=== PATIENT | male | born 1985 | race Caucasian/White ===

== ENCOUNTER → 2018-10-15 | Outpatient (CLI) | payer BC ==
--- NOTE | 2018-10-15 13:38 | Diagnostic Imaging Report ---
INDICATION: Right knee pain AP, oblique, and lateral views of the right knee are obtained. No fracture or acute bony abnormality is seen. Joint spaces appear unremarkable. There is no joint effusion. There is no lytic or blastic lesion. IMPRESSION: Negative right knee. Dictated by: Dictated on workstation # [id number]
== END ==
LOC: RAD FS 13:26
PROVIDERS: ATTEND Nurse Practitioner Family
DX: M25.561 Pain in right knee (principal)
CPT/HCPCS: 73562

== ENCOUNTER 2019-03-09 04:03 | Emergency (ER) | payer BC ==
[~2019-03-09] VITALS: Ht 182 cm; Wt 104.0 kg
--- NOTE | 2019-03-09 04:12 | ED Chest Pain ---
General Chief Complaint: Chest Pain Stated Complaint: CHEST PAIN Source: patient Exam Limitations: no limitations History of Present Illness Date Seen by Provider: Mar 09, 2019 Time Seen by Provider: 04:12 Initial Comments 33-year-old male presents with left chest pain, cough, fever, nausea. Patient reports that started yesterday and it went away. Then chest pain then woke him up around 3:00 this morning. He is nauseated. He did not get diaphoretic or short of breath. Nothing seems to make it worse. The pain does not radiate Allergies and Home Medications Allergies Coded Allergies: No Known Drug Allergies (Unverified , 03/09/19) Patient Home Medication List Home Medication List Reviewed: Yes Review of Systems Review of Systems Constitutional: No chills; fever EENTM: No Symptoms Reported Respiratory: Cough Cardiovascular: Chest Pain Gastrointestinal: No Symptoms Reported Genitourinary: No Symptoms Reported Musculoskeletal: no symptoms reported Skin: no symptoms reported Psychiatric/Neurological: No Symptoms Reported Past Drigdhg-Tfouvs-Vtfehz Hx Past Med/Social Hx: Reviewed Nursing Past Med/Soc Hx Patient Social History Recent Foreign Travel: No Contact w/Someone Who Travel: No Physical Exam Vital Signs Vital Signs - First Documented 03/09/19 04:07 Temp 36.7 Pulse 63 Resp 16 B/P (MAP) 170/104 (126) Pulse Ox 99 O2 Delivery Room Air Capillary Refill : Height, Weight, BMI Height: '" Weight: lbs. oz. 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 Skin: Normal Color, Warm/Dry Lymphatic: No Adenopathy Progress/Results/Core Measures Results/Orders Lab Results Laboratory Tests Test 03/09/19 04:14 Range/Units White Blood Count 7.1 4.3-11.0 10^3/uL Red Blood Count 5.80 4.35-5.85 10^6/uL Hemoglobin 16.3 13.3-17.7 G/DL Hematocrit 49 40-54 % Mean Corpuscular Volume 84 80-99 FL Mean Corpuscular Hemoglobin 28 25-34 PG Mean Corpuscular Hemoglobin Concent 34 32-36 G/DL Red Cell Distribution Width 13.0 10.0-14.5 % Platelet Count 185 130-400 10^3/uL Mean Platelet Volume 9.7 7.4-10.4 FL Neutrophils (%) (Auto) 59 42-75 % Lymphocytes (%) (Auto) 22 12-44 % Monocytes (%) (Auto) 14 H 0-12 % Eosinophils (%) (Auto) 5 0-10 % Basophils (%) (Auto) 0 0-10 % Neutrophils # (Auto) 4.2 1.8-7.8 X 10^3 Lymphocytes # (Auto) 1.6 1.0-4.0 X 10^3 Monocytes # (Auto) 1.0 0.0-1.0 X 10^3 Eosinophils # (Auto) 0.3 0.0-0.3 10^3/uL Basophils # (Auto) 0.0 0.0-0.1 10^3/uL D-Dimer 0.38 0.00-0.49 UG/ML Sodium Level 138 135-145 MMOL/L Potassium Level 4.1 3.6-5.0 MMOL/L Chloride Level 103 98-107 MMOL/L Carbon Dioxide Level 24 21-32 MMOL/L Anion Gap 11 5-14 MMOL/L Blood Urea Nitrogen 10 7-18 MG/DL Creatinine 1.30 0.60-1.30 MG/DL Estimat Glomerular Filtration Rate > 60 BUN/Creatinine Ratio 8 Glucose Level 124 H 70-105 MG/DL Calcium Level 9.1 8.5-10.1 MG/DL Corrected Calcium 8.5-10.1 MG/DL Magnesium Level 2.0 1.6-2.4 MG/DL Total Bilirubin 0.8 0.1-1.0 MG/DL Aspartate Amino Transf (AST/SGOT) 23 5-34 U/L Alanine Aminotransferase (ALT/SGPT) 22 0-55 U/L Alkaline Phosphatase 52 40-136 U/L Troponin I < 0.30 <0.30 NG/ML Pro-B-Type Natriuretic Peptide 14.0 <75.0 PG/ML Total Protein 7.2 6.4-8.2 GM/DL Albumin 4.6 H 3.2-4.5 GM/DL Micro Results Microbiology 03/09/19 Influenza Types A,B Antigen ([facility]) - Final, Complete My Orders Orders - OTONIEL ESTEVEZ DO Cbc With Automated Diff (03/09/19 04:12) Comprehensive Metabolic Panel (03/09/19 04:12) Fibrin Degradation Products (03/09/19 04:12) Ua Culture If Indicated (03/09/19 04:12) Probnp Fs (03/09/19 04:12) Magnesium (03/09/19 04:12) Chest 1 View Ap/Pa Only (03/09/19 04:12) Ekg Tracing (03/09/19 04:12) Monitor-Rhythm Ecg Trace Only (03/09/19 04:12) Aspirin Chewable Tablet (Baby Aspirin Ch (03/09/19 04:15) Ed Iv/Invasive Line Start (03/09/19 04:12) Troponin I Fs (03/09/19 04:12) Influenza A And B Antigens (03/09/19 04:12) Ondansetron Injection (Zofran Injectio (03/09/19 04:30) Ondansetron Injection (Zofran Injectio (03/09/19 04:15) Ekg Tracing (03/09/19 05:12) Medications Given in ED Current Medications Medications Dose Ordered Sig/Vijay Route Start Time Stop Time Status Last Admin Dose Admin Aspirin 324 mg ONCE ONCE PO 03/09/19 04:15 03/09/19 04:16 DC 03/09/19 04:20 324 MG Ondansetron HCl 4 mg ONCE ONCE IVP 03/09/19 04:30 03/09/19 04:31 DC 03/09/19 04:20 4 MG Vital Signs/I&O 03/09/19 04:07 Temp 36.7 Pulse 63 Resp 16 B/P (MAP) 170/104 (126) Pulse Ox 99 O2 Delivery Room Air Progress Progress Note : Time: 05:17 Progress Note Patient with very low risk factors. Patient with 2 negative EKGs, negative t roponin. Discussed with him that I suspect is probably a viral illness since his chest pain started over 36 hours ago and has no change in the troponin and no EKG changes. I will prescribe him Zofran. He should return to the ER or follow- up with his primary care provider if symptoms worsen or as needed. Initial ECG Impression Date: Mar 09, 2019 Initial ECG Impression Time: 04:11 Initial ECG Rhythm: Normal Sinus Initial ECG Intervals: Normal Initial ECG Impression: Normal Diagnostic Imaging Diagonstic Imaging: Xray Plain Films/CT/US/NM/MRI: chest Comments No acute findings Reviewed: Reviewed by Me Departure Impression Primary Impression: Chest pain Qualified Codes: R07.9 - Chest pain, unspecified Additional Impression: Acute viral syndrome Disposition: HOME, SELF-CARE Condition: Stable Departure-Patient Inst. Referrals: [facility] (PCP) Primary Care Physician KEVIN ROBERSON APRN (Family) Primary Care Physician Scripts Ondansetron (Ondansetron Odt) 4 Mg Tab.rapdis 4 MG PO Q6H PRN for NAUSEA/VOMITING, #20 TAB Prov: OTONIEL ESTEVEZ DO 03/09/19 OTONIEL ESTEVEZ DO Mar 09, 2019 04:12
[2019-03-09] MEDS ORDERED: ONDANSETRON 4 MG/2 ML (SDV) Z0FRAN ONE (04:15)
[2019-03-09] MEDS ORDERED: ASPIRIN 81 MG CHEW (CHILDREN'S ASA) PO ONE (04:15)
[2019-03-09 04:20] LABS: BASOPHILS % (AUTO) 0 % (0-10); EOSINOPHILS # (AUTO) 0.3 10^3/uL (0.0-0.3); EOSINOPHILS % (AUTO) 5 % (0-10); HEMATOCRIT 49 % (40-54); HEMOGLOBIN 16.3 G/DL (13.3-17.7); LYMPHOCYTES # (AUTO) 1.6 X 10^3 (1.0-4.0); LYMPHOCYTES % (AUTO) 22 % (12-44); MEAN CORPUSCULAR HEMOGLOBIN 28 PG (25-34); MEAN CORPUSCULAR HGB CONC 34 G/DL (32-36); MEAN CORPUSCULAR VOLUME 84 FL (80-99); MEAN PLATELET VOLUME 9.7 FL (7.4-10.4); MONOCYTES % (AUTO) 14 % (0-12); NEUTROPHILS # (AUTO) 4.2 X 10^3 (1.8-7.8); NEUTROPHILS % (AUTO) 59 % (42-75); PLATELET COUNT 185 10^3/uL (130-400); WHITE BLOOD COUNT 7.1 10^3/uL (4.3-11.0)
[2019-03-09] MEDS ORDERED: ONDANSETRON 4 MG/2 ML (SDV) Z0FRAN IVP ONE (04:30)
[2019-03-09 04:42] LABS: ALANINE AMINOTRANSFERASE 22 U/L (0-55); ALBUMIN 4.6 GM/DL (3.2-4.5); ALKALINE PHOSPHATASE 52 U/L (40-136); BILIRUBIN,TOTAL 0.8 MG/DL (0.1-1.0); BUN/CREATININE RATIO 8; CALCIUM 9.1 MG/DL (8.5-10.1); CARBON DIOXIDE 24 MMOL/L (21-32); CHLORIDE 103 MMOL/L (98-107); GFR ESTIMATED > 60; GLUCOSE 124 MG/DL (70-105); POTASSIUM 4.1 MMOL/L (3.6-5.0); SODIUM 138 MMOL/L (135-145); TOTAL PROTEIN 7.2 GM/DL (6.4-8.2)
[2019-03-09] MEDS ORDERED: ONDA4TAB11 PO (05:19)
[2019-03-09 05:23] VITALS: BP 128/69
--- NOTE | 2019-03-09 06:46 | Diagnostic Imaging Report ---
INDICATION: Chest pain. TECHNIQUE: Single frontal view of the chest. COMPARISON: None FINDINGS: The lung volumes are normal. No focal consolidation is seen. No large pleural effusion or pneumothorax is seen. The cardiomediastinal silhouette is normal in size and contour. No acute osseous abnormality is seen. IMPRESSION: No acute pulmonary abnormality seen. Dictated by: Dictated on workstation # [id number]
== END 2019-03-09 05:28 | disposition home or self-care (01) ==
LOC: EDUNIT# 04:03 → ER FS 04:08
DX: R07.9 Chest pain, unspecified (principal); B34.9 Viral infection, unspecified
CPT/HCPCS: 36415; 71045; 80053; 83735; 83880; 84484; 85025; 85379; 87804; 93041; 96374

== ENCOUNTER 2020-05-15 07:23 | Emergency (ER) | payer BC ==
[~2020-05-15] VITALS: Ht 182 cm; Wt 115.0 kg
[~2020-05-15 07:23] MED LIST: ONDA4TAB11 PO
[2020-05-15] MEDS ORDERED: morphine INJ 10 MG/ML 1ML (SYR OR VIAL) IM STA (07:47)
[2020-05-15] MEDS ORDERED: KETOROLAC 60 MG/2 ML VIAL IM STA (07:47)
[2020-05-15] MEDS ORDERED: ORPHENADRINE 60 MG/2 ML (NORFLEX) AMP (ED ONLY) IM STA (07:47)
--- NOTE | 2020-05-15 07:54 | ED Back Pain ---
General Chief Complaint: Back Problems Stated Complaint: LOWER BACK PAIN Nursing Triage Note: PT REPORTS HE HURT HIS BACK LAST WEEK DOING SQUATS WHILE WORKING OUT. HE HAS A HX OF SOME BACK PAIN. HE WENT TO SEE LATONYA PRESCOTT APRN AT [facility] AND WAS GIVEN STEROID INJECTIONS AND A SCRIPT FOR CYCLOBENZAPRINE. PT ALSO WENT TO A CHIROPRATOR THIS WEEK IN HOPES OF HELPING THE PAIN. THE PAIN HAS GOTTEN WORSE AND HE TRIED TO HAVE A BM THIS AM BUT IT HURT TOO MUCH. PT TOOK FLEXERIL THIS AM WITHOUT RELIEF. Nursing Sepsis Screen: No Definite Risk Source of Information: Patient History of Present Illness Date Seen by Provider: May 15, 2020 Time Seen by Provider: 07:26 Initial Comments 34 yo male presents with low back pain and lumbar pain since last week. He was doing some squats while working out and had pain in his low back. He has spasms in his low back and lumbar spine. He was seen by LAZARA Payton in clinic and was given short and long acting steroid for his back and script for cyclobenzaprine. He also went to see a chiropractor on Saturday but still has been feeling like the pain is worse. He woke up this am and was having more severe pain and was not able to rest very well overnight. He had too much pain in his back to be able to have a bowel movement this am. He did take a cyclobenzaprine this am but it was not helping with the spasms and pain. he has not lost control of bowel or b ladder. He has some pain radiating to his buttocks but not down his legs. He denies any significant history of chronic back pain. Location: Lumbar Spine, Paraspinous Muscles Timing/Duration: 1 Week (more than a week), Getting Worse Severity: Severe Pain/Injury Location: Back Radiation: Buttocks Method of Injury: Other (lifting and working out doing squats) Modifying Factors: Improves With Immobilization; Worse With Jarring, Worse With Movement Associated Symptoms: muscle spasms; No fever, No weakness, No numbness in le gs/feet, No tingling in legs/feet, No sensory/motor loss; lower back pain; No loss of bladder control, No loss of bowel control Allergies and Home Medications Allergies Coded Allergies: No Known Drug Allergies (Unverified , 03/09/19) Home Medications Baclofen 10 Mg Tablet, 10 MG PO TID PRN for MUSCLE SPASMS Prescribed by: NELSON STARKRT on 05/15/20 09 Hydrocodone/Acetaminophen 1 Each Tablet, 1 TAB PO Q6H PRN for PAIN-SEVERE (8-10) Prescribed by: NELSON STARKRT on 05/15/20 0909 Ibuprofen 800 Mg Tablet, 800 MG PO Q8H PRN for pain/inflammation Prescribed by: NELSON STARKRT on 05/15/20 09 Ondansetron 4 Mg Tab.rapdis, 4 MG PO Q6H PRN for NAUSEA/VOMITING Prescribed by: OTONIEL ESTEVEZ on 03/09/19 0519 Patient Home Medication List Home Medication List Reviewed: Yes Review of Systems Constitutional: No chills, No fever EENTM: no symptoms reported Respiratory: no symptoms reported Cardiovascular: no symptoms reported Gastrointestinal: no symptoms reported Genitourinary: no symptoms reported Musculoskeletal: see HPI Skin: No rash Psychiatric/Neurological: Denies Numbness, Denies Paresthesia Past Nlxspnk-Ytyclc-Yvslfx Hx Past Med/Social Hx: Reviewed Nursing Past Med/Soc Hx Patient Social History Alcohol Use: Denies Use Smoking Status: Never a Smoker 2nd Hand Smoke Exposure: No Recent Infectious Disease Expo: No Recent Hopitalizations: No Seasonal Allergies Seasonal Allergies: No Past Medical History Surgeries: Yes Orthopedic, Tonsillectomy Respiratory: No Cardiac: No Neurological: No Genitourinary: No Gastrointestinal: No Musculoskeletal: No Endocrine: No HEENT: No Cancer: No Psychosocial: No Integumentary: No Blood Disorders: No Physical Exam Vital Signs Vital Signs - First Documented 05/15/20 07:28 Temp 35.8 Pulse 64 Resp 18 B/P (MAP) 152/82 (105) Pulse Ox 99 O2 Delivery Room Air Capillary Refill : Less Than 3 Seconds Height, Weight, BMI Height: '" Weight: lbs. oz. kg; 34.00 BMI Method: General Appearance: WD/WN, Moderate Distress, Other (muscular) HEENT: PERRL/EOMI Neck: Full Range of Motion, Normal Inspection, Non Tender, Supple Cardiovascular: Regular Rate, Rhythm, Normal Peripheral Pulses Respiratory: Chest Non Tender, Lungs Clear, Normal Breath Sounds Gastrointestinal: Normal Bowel Sounds, No Pulsatile Mass, Non Tender, Soft Back: No CVA Tenderness, Muscle Spasm, Vertebral Tenderness, Other (positive SLR on right at 30 degrees and no improvement with bending knee. 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, Abnormal Gait (antalgic gait), Other (symmetrical 2/4 patellar reflexes) Skin: Normal Color, Warm/Dry; No Rash Progress/Results/Core Measures Results/Orders My Orders Orders - NELSON MONTELONGO MD Ketorolac Injection (Toradol Injection) (05/15/20 07:47) Morphine Injection (Morphine Injection (05/15/20 07:47) Orphenadrine Inj (Ed Only) (Norflex Inje (05/15/20 07:47) Ct Abdomen/Pelvis Wo (05/15/20 07:47) Vital Signs/I&O 05/15/20 05/15/20 07:28 08:35 Temp 35.8 35.8 Pulse 64 64 Resp 18 18 B/P (MAP) 152/82 (105) 152/82 (105) Pulse Ox 99 99 O2 Delivery Room Air Blood Pressure Mean: 105 Progress Progress Note #1: Progress Note with pain in low back over lumbar spine and paraspinal muscles as well as the muscles out over pelvis will obtain CT scan of abdomen/pelvis to evaluate for muscle injury/tear, paraspinal muscle spasm, herniated disc, compression fracture, hematoma, malalignment. Give Toradol, Morphine, Norflex to try and help with pain and spasms since the cyclobenzaprine and steroid shots from clinic were not helping. Progress Note #2: Progress Note pt with moderate improvement in pain and able to move better after treatment. CT scan does not show any bony or nerve damage. Counseled to follow up and if not improving he may need MRI. Try change to Baclofen for muscle relaxer and add ibuprofen for NSAID, Hydrocodone prn for severe pain. May want PT to help with back and stretching. 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 TECHNIQUE: Multiple contiguous axial images were obtained through the abdomen and pelvis without the use of intravenous contrast. Auto Exposure Controls were utilized during the CT exam to meet ALARA standards for radiation dose reduction. INDICATION: Back pain for one week. Unable to have a bowel movement due to back pain. COMPARISON: None. FINDINGS: The heart is unremarkable. The lung bases demonstrate a small amount of subsegmental atelectasis. The liver, spleen, pancreas, adrenal glands, and kidneys have a normal appearance. There is no pathologically enlarged mesenteric or retroperitoneal adenopathy. The bowel loops are nondilated. The appendix is visualized in the right lower quadrant and has a normal appearance. There is no free fluid or free air. No acute osseous abnormalities. Ureters and bladder are normal. There is no free air, loculated collection, or adenopathy in the pelvis. IMPRESSION: 1. No acute abnormalities in the abdomen and pelvis. No evidence of acute fracture in the lumbar spine. If symptoms persist consider MRI of the lumbar spine to further evaluate. Dictated by: Dictated on workstation # [id number] Dict: 05/15/20817 Trans: 05/15/20 0834 [facility] [id number] Interpreted by: JUAN MANUEL LEO DO Electronically signed by: JUAN MANUEL LEO DO 05/15/20 0834 Departure Impression Primary Impression: Acute lumbar back pain Qualified Codes: M54.5 - Low back pain Additional Impressions: Lumbar back sprain Qualified Codes: S33.5XXA - Sprain of ligaments of lumbar spine, initial encounter Lumbar paraspinal muscle spasm Disposition: 01 HOME, SELF-CARE Condition: Stable Departure-Patient Inst. Decision time for Depature: 09:09 Referrals: [facility] (PCP) Primary Care Physician TERESA PAYTON APRN (Family) Primary Care Physician Patient Instructions: Low Back Pain ED Add. Discharge Instructions: Try alternating ice and heat to your back to help with inflammation. Try changing from the Cyclobenzaprine to the Baclofen (Lioresal) to help with muscle spasms instead. Take Ibuprofen to help with inflammation and pain. For severe pain try using the Hydrocodone. Consider taking Miralax or a laxative to help keep your stools soft and regular. For today you might try a suppository such as Dulcolax to help you have a bowel movement so you do not have to strain so much. Make sure you are drinking plenty of fluids and staying hydrated. This will help with inflammation and pain as well as keeping your stools soft and regular. Check with clinic and if you are not improving you may also want to have a physical therapist help with some back stretching and strengthening exercises. All discharge instructions reviewed with patient and/or family. Voiced understanding. Scripts Hydrocodone/Acetaminophen (Hydrocodone-Acetamin 5-325 mg) 1 Each Tablet 1 TAB PO Q6H PRN for PAIN-SEVERE (8-10) for 5 Days, #20 TAB 0 Refills Prov: NELSON MONTELONGO MD 05/15/20 Baclofen (Baclofen) 10 Mg Tablet 10 MG PO TID PRN for MUSCLE SPASMS for 10 Days, #30 TAB 0 Refills Prov: NELSON MONTELONGO MD 05/15/20 Ibuprofen (Ibuprofen) 800 Mg Tablet 800 MG PO Q8H PRN for pain/inflammation for 10 Days, #30 TAB 0 Refills Prov: NELSON MONTELONGO MD 05/15/20 Work/School Note: Work Release Form Date Seen in the Emergency Department: May 15, 2020 Return to Work: May 19, 2020 Restrictions: No Restrictions Images Torso/Trunk 1 - Severe, Muscle Spams, Tenderness (pain and muscle spasms to low back across top of pelvis and along paraspinal muscles. Also tender to palpation over lumbar vertebra) NELSON MONTELONGO MD May 15, 2020 07:54
--- NOTE | 2020-05-15 08:32 | Diagnostic Imaging Report ---
PROCEDURE: CT abdomen and pelvis without contrast. TECHNIQUE: Multiple contiguous axial images were obtained through the abdomen and pelvis without the use of intravenous contrast. Auto Exposure Controls were utilized during the CT exam to meet ALARA standards for radiation dose reduction. INDICATION: Back pain for one week. Unable to have a bowel movement due to back pain. COMPARISON: None. FINDINGS: The heart is unremarkable. The lung bases demonstrate a small amount of subsegmental atelectasis. The liver, spleen, pancreas, adrenal glands, and kidneys have a normal appearance. There is no pathologically enlarged mesenteric or retroperitoneal adenopathy. The bowel loops are nondilated. The appendix is visualized in the right lower quadrant and has a normal appearance. There is no free fluid or free air. No acute osseous abnormalities. Ureters and bladder are normal. There is no free air, loculated collection, or adenopathy in the pelvis. IMPRESSION: 1. No acute abnormalities in the abdomen and pelvis. No evidence of acute fracture in the lumbar spine. If symptoms persist consider MRI of the lumbar spine to further evaluate. Dictated by: Dictated on workstation # [id number]
[2020-05-15 08:35] VITALS: BP 152/82
[2020-05-15] MEDS ORDERED: IBUP-1780 PO (09:08)
[2020-05-15] MEDS ORDERED: BACL10TA PO (09:08)
[2020-05-15] MEDS ORDERED: ACHD5005 PO (09:08)
== END 2020-05-15 09:15 | disposition home or self-care (01) ==
LOC: EDUNIT# 07:23 → ER FS 07:24
DX: S33.5XXA Sprain of ligaments of lumbar spine, initial encounter (principal); X50.0XXA Overexertion from strenuous movement or load, initial encounter; Y93.B9 Activity, other involving muscle strengthening exercises
CPT/HCPCS: 74176